=== PATIENT | male | born 1975 | race African-American/Black ===

== ENCOUNTER 2018-11-13 17:01 | Emergency (ER) | payer OTHER ==
[~2018-11-13] VITALS: Ht 170.2 cm; Wt 111.0 kg
[2018-11-13] MEDS ORDERED: KETOROLAC 60MG/2ML VIAL IM ONE (22:30)
[2018-11-14] MEDS ORDERED: HYDROCODONE/ACETAMINOPHEN 5/325MG TABLET PO ONE
[2018-11-14 00:02] VITALS: BP 137/97
== END 2018-11-14 00:03 | disposition home or self-care (01) ==
LOC: ER 18:47
DX: S09.8XXA Other specified injuries of head, initial encounter (principal); M54.9 Dorsalgia, unspecified; E11.9 Type 2 diabetes mellitus without complications; W22.8XXA Striking against or struck by other objects, initial encounter; Y93.89 Activity, other specified; Y92.89 Other specified places as the place of occurrence of the external cause
CPT/HCPCS: 72070; 96372; 99283; J1885